=== PATIENT | female | born 2000 | race American Indian/Alaskan Native ===

== ENCOUNTER 2022-03-03 17:20 | Emergency (ER) | payer SELFPAY ==
[2022-03-03 18:27] LABS: Basophils # (Auto) 0.1 K/mm3 (0.0-0.1); Basophils % (Auto) 0.9 % (0.0-1.8); Eosinophils # (Auto) 0.2 K/mm3 (0.0-0.4); Eosinophils % (Auto) 2.6 % (0.0-4.3); Hematocrit 36.7 % (30.3-42.9); Hemoglobin 12.3 gm/dl (10.1-14.3); Lymphocytes # (Auto) 2.4 K/mm3 (1.2-5.4); Lymphocytes % (Auto) 38.7 % (13.4-35.0); Mean Corpuscular HGB Conc 33 % (30-34); Mean Corpuscular Volume 96 fl (79-97); Monocytes # (Auto) 0.6 K/mm3 (0.0-0.8); Monocytes % (Auto) 9.2 % (0.0-7.3); Platelet Count 249 K/mm3 (140-440); Red Blood Count 3.83 M/mm3 (3.65-5.03); Red Cell Distribution Width 13.3 % (13.2-15.2)
[2022-03-03 18:51] LABS: HCG Qualitative,Urine Positive (Negative)
[2022-03-03 18:58] LABS: Bilirubin,Urine NEG (Negative); Blood,Urine NEG (Negative); Color,Urine Straw (Yellow); Mucus,Urine FEW /HPF; Protein,Urine <15 mg/dL mg/dL (Negative); Urobilinogen,Urine < 2.0 mg/dL (<2.0)
--- NOTE | 2022-03-03 20:25 | Emergency Department Report ---
ED Dizziness HPI - General Chief Complaint: Dizziness Stated Complaint: DIZZY/CHECK UP Time Seen by Provider: 03/03/22 20:20 Source: patient Mode of arrival: Ambulatory Limitations: No Limitations - History of Present Illness Initial Comments: 21-year-old black female with no past medical history presents to the emergency department for evaluation of few day history of lightheadedness, dizziness, and nausea. She denies fever, abdominal pain, dysuria. MD Complaint: dizziness, lightheadedness -: Gradual, days(s) (2-3) Timing: gradual onset Description: lightheadedness History of Same: No History of Trauma: No Severity: mild Associated Symptoms: denies: ataxia, chest pain, confusion, cough, diaphoresis, fever/chills, loss of appetite, malaise, rash, seizure, shortness of breath, syncope, weakness - Related Data Previous Rx's Medication Instructions Recorded Last Taken Type Ondansetron [Zofran Odt] 4 mg PO Q8HR PRN #12 tab.rapdis 03/03/22 Unknown Rx 147/Iron/Folic Acid 1 each PO DAILY #30 tab 03/03/22 Unknown Rx [Azesco Tablet] Allergies Allergy/AdvReac Type Severity Reaction Status Date / Time No Known Allergies Allergy Verified 03/03/22 17:28 ED Review of Systems ROS: Stated complaint: DIZZY/CHECK UP Other details as noted in HPI Comment: All other systems reviewed and negative Constitutional: denies: chills, fever Eyes: denies: vision change ENT: denies: congestion Respiratory: denies: cough, shortness of breath, SOB with exertion, SOB at rest, stridor, wheezing Cardiovascular: denies: chest pain, palpitations, dyspnea on exertion, or thopnea, edema, syncope, paroxysmal nocturnal dyspnea Gastrointestinal: denies: abdominal pain, nausea, vomiting, diarrhea, hematemesis, melena, hematochezia Genitourinary: denies: urgency, dysuria, frequency, hematuria, discharge Musculoskeletal: denies: back pain Skin: denies: rash, lesions Neurological: denies: headache, weakness, numbness, paresthesias, confusion, abnormal gait, vertigo ED Past Medical Hx - Past Medical History Previous Medical History?: No - Surgical History Past Surgical History?: No - Medications Home Medications: Home Medications Medication Instructions Recorded Confirmed Last Taken Type Ondansetron [Zofran Odt] 4 mg PO Q8HR PRN #12 tab.rapdis 03/03/22 Unknown Rx 147/Iron/Folic Acid 1 each PO DAILY #30 tab 03/03/22 Unknown Rx [Azesco Tablet] ED Physical Exam - General Limitations: No Limitations General appearance: alert, in no apparent distress - Head Head exam: Present: atraumatic, normocephalic - Eye Eye exam: Present: normal appearance. Absent: conjunctival injection - Neck Neck exam: Present: normal inspection, full ROM. Absent: tenderness, meningismus, lymphadenopathy - Respiratory Respiratory exam: Present: normal lung sounds bilaterally. Absent: respiratory distress, wheezes, rales, rhonchi, stridor, chest wall tenderness - Cardiovascular Cardiovascular Exam: Present: normal heart sounds - GI/Abdominal GI/Abdominal exam: Present: soft, normal bowel sounds. Absent: distended, tenderness, guarding, rebound, rigid - Extremities Exam Extremities exam: Present: normal inspection, full ROM, normal capillary refill. Absent: tenderness, pedal edema, joint swelling, calf tenderness - Back Exam Back exam: Present: normal inspection. Absent: CVA tenderness (R), CVA tenderness (L), vertebral tenderness - Neurological Exam Neurological exam: Present: alert, oriented X3, normal gait - Psychiatric Psychiatric exam: Present: normal affect, normal mood - Skin Skin exam: Present: warm, dry, intact, normal color ED Medical Decision Making - Lab Data Result diagrams: 03/03/22 18:04 - Medical Decision Making 21-year-old black female with no past medical history presents to the emergency department for evaluation of few day history of lightheadedness, dizziness, and nausea. She denies fever, abdominal pain, dysuria. H&H within normal limit. Urine negative for UTI. Urine positive for . Patient is G3, P0. Patient denies abdominal pain and no tenderness on palpation during exam. Patient will be discharged home with Zofran and vitamin to follow-up with AGENCY SALES REPRESENTATIVE for further evaluation and management of period. She is advised to return to the emergency department for any concerns symptoms. She verbalizes understanding of and agreement with plan of care. Critical care attestation.: If time is entered above; I have spent that time in minutes in the direct care of this critically ill patient, excluding procedure time. ED Disposition Clinical Impression: Qualifiers: Weeks of gestation: less than 8 weeks Qualified Code(s): Z3A.01 - Less than 8 weeks gestation of Disposition: HOME / SELF CARE / HOMELESS Is pt being admited?: No Does the pt Need Aspirin: No Condition: Stable Instructions: First Trimester of , [id number] Additional Instructions: Medications as prescribed. You can only use Tylenol as needed for pain. No aspirin, naproxen, or ibuprofen. Drink plenty of noncaffeinated fluids. Follow-up with AGENCY SALES REPRESENTATIVE for further management and care. Return to the emergency department as needed. Prescriptions: 147/Iron/Folic Acid [Azesco Tablet] 1 each PO DAILY #30 tab Ondansetron [Zofran Odt] 4 mg PO Q8HR PRN #12 tab.rapdis PRN Reason: Nausea And Vomiting Referrals: [facility] [Provider Group] - 3-5 Days [facility] [Provider Group] - 3-5 Days Time of Disposition: 20:24
== END 2022-03-04 01:35 | disposition home or self-care (01) ==
LOC: ED 17:20
DX: O26.891 Other specified pregnancy related conditions, first trimester (principal); R42 Dizziness and giddiness; Z3A.01 Less than 8 weeks gestation of pregnancy
CPT/HCPCS: 36415; 81001; 81025; 85025; 99283

== ENCOUNTER 2022-04-30 16:31 | Emergency (ER) | payer SELFPAY ==
[2022-04-30 17:31] VITALS: BP 101/54
[2022-04-30 20:45] LABS: Bilirubin,Urine NEG (Negative); Blood,Urine NEG (Negative); Color,Urine Yellow (Yellow); Protein,Urine <15 mg/dL mg/dL (Negative); Urobilinogen,Urine < 2.0 mg/dL (<2.0)
[2022-04-30 20:47] LABS: Mucus,Urine 1+ /HPF; WBC,Urine < 1.0 /HPF (0.0-6.0)
--- NOTE | 2022-04-30 21:40 | Emergency Department Report ---
ED Female HPI - General Chief complaint: Urogenital-Female Stated complaint: ABD CRAMPING Time Seen by Provider: 04/30/22 21:12 Source: patient Mode of arrival: Ambulatory Limitations: No Limitations - History of Present Illness Initial comments: The patient was evaluated in the emergency department for symptoms described in the history of present illness. He/she was evaluated in the context of the global COVID-19 pandemic, which necessitated consideration that the patient might be at risk for infection with the virus that causes COVID-19. Inst itutional protocols and algorithms that pertain to the evaluation of patients at risk for COVID-19 are in a state of rapid change based on information released by regulatory bodies including the CDC and federal and state organizations. These policies and algorithms were followed during the patient's care in the emergency department. Please note that these policies, procedures and recommendations changed on a rapid basis. This is a pleasant and cooperative 21-year-old female, who presents to the department today with a complaint of painless vaginal spotting which is now resolved, and vaginal discharge which is now resolved. The patient had an elective termination of in February, in the state of [place]. Since then, she has been sexually active, intermittently using condoms. She denies dysuria. She is currently deciding whether or not she would like to relocate to [place], or remain in [place]. She does not have a local MEDICAL PLANNER or primary care provider MD Complaint: vaginal bleeding -: Gradual Consistency: intermittent Improves with: none Worsens with: none - Related Data Sexually active: Yes Previous Rx's Medication Instructions Recorded Last Taken Type Ondansetron [Zofran Odt] 4 mg PO Q8HR PRN #12 tab.rapdis 03/03/22 Unknown Rx 147/Iron/Folic Acid 1 each PO DAILY #30 tab 03/03/22 Unknown Rx [Azesco Tablet] Allergies Allergy/AdvReac Type Severity Reaction Status Date / Time No Known Allergies Allergy Verified 03/03/22 17:28 ED Review of Systems ROS: Stated complaint: ABD CRAMPING Other details as noted in HPI Comment: All other systems reviewed and negative Genitourinary: discharge, other (Intermittent vaginal bleeding). denies: urgency, dysuria, frequency, hematuria ED Past Medical Hx - Past Medical History Previous Medical History?: Yes Additional medical history: with - Surgical History Past Surgical History?: Yes Additional Surgical History: - Medications Home Medications: Home Medications Medication Instructions Recorded Confirmed Last Taken Type Ondansetron [Zofran Odt] 4 mg PO Q8HR PRN #12 tab.rapdis 03/03/22 Unknown Rx 147/Iron/Folic Acid 1 each PO DAILY #30 tab 03/03/22 Unknown Rx [Azesco Tablet] ED Physical Exam - General Limitations: No Limitations General appearance: alert, in no apparent distress - Head Head exam: Present: atraumatic, normocephalic - Eye Eye exam: Present: normal appearance, EOMI. Absent: nystagmus - ENT ENT exam: Present: normal exam, normal orophraynx, mucous membranes moist, normal external ear exam - Neck Neck exam: Present: normal inspection, full ROM. Absent: tenderness, meningismus - Respiratory Respiratory exam: Present: normal lung sounds bilaterally. Absent: respiratory distress, wheezes, rales, rhonchi, stridor, decreased breath sounds - Cardiovascular Cardiovascular Exam: Present: regular rate, normal rhythm, normal heart sounds. Absent: bradycardia, tachycardia, irregular rhythm, systolic murmur, diastolic murmur, rubs, gallop - GI/Abdominal GI/Abdominal exam: Present: soft. Absent: distended, tenderness, guarding, re bound, rigid, pulsatile mass - Rectal Rectal exam: Present: normal inspection - External exam: Present: normal external exam. Absent: erythema, swelling, lesions, lacerations, ecchymosis, bleeding Speculum exam: Present: normal speculum exam, other (Patient provides consent for gynecologic and pelvic examination. During the pelvic examination, I am chaperoned by juli bourgeois). Absent: erythema, vaginal discharge, cervical discharge, vaginal bleeding, foreign body, tissue, laceration - Extremities Exam Extremities exam: Present: normal inspection, full ROM, normal capillary refill. Absent: pedal edema, calf tenderness - Back Exam Back exam: Present: normal inspection. Absent: tenderness, CVA tenderness (R), CVA tenderness (L), paraspinal tenderness, vertebral tenderness - Neurological Exam Neurological exam: Present: alert, oriented X3, normal gait, other (No facial droop. Tongue midline. Extraocular movements intact bilaterally. Facial sensation intact to light touch in V1, V2, V3 distribution bilaterally. 5 and a 5 strength in 4 extremities. Sensation intact to light touch in 4 extremities.). Absent: motor sensory deficit - Psychiatric Psychiatric exam: Present: normal affect, normal mood - Skin Skin exam: Present: warm, dry, intact, normal color. Absent: rash ED Course Vital Signs 04/30/22 17:30 Temperature 98.7 F Pulse Rate 62 Respiratory 20 Rate Blood Pressure 101/54 [Right] O2 Sat by Pulse 100 Oximetry ED Medical Decision Making - Lab Data Vital Signs 04/30/22 17:30 Temperature 98.7 F Pulse Rate 62 Respiratory 20 Rate Blood Pressure 101/54 [Right] O2 Sat by Pulse 100 Oximetry Lab Results 04/30/22 04/30/22 Range/Units 22:07 Unknown Urine Color Yellow (Yellow) Urine Turbidity Clear (Clear) Urine pH 7.0 (5.0-7.0) Ur Specific [place] 1.023 (1.003-1.030) Urine Protein <15 mg/dl (Negative) mg/dL Urine Glucose (UA) Neg (Negative) mg/dL Urine Ketones Neg (Negative) mg/dL Urine Blood Neg (Negative) Urine Nitrite Neg (Negative) Urine Bilirubin Neg (Negative) Urine Urobilinogen < 2.0 (<2.0) mg/dL Ur Leukocyte Esterase Neg (Negative) Urine WBC (Auto) < 1.0 (0.0-6.0) /HPF Urine RBC (Auto) 1.0 (0.0-6.0) /HPF U Epithel Cells (Auto) 7.0 (0-13.0) /HPF Urine Mucus 1+ /HPF Urine HCG, Qual Negative (Negative) - Medical Decision Making Differential diagnosis, including but not limited to: Encounter for test, menstruation Assessment and plan: 21-year-old female, who is afebrile, with reassuring vital signs, who presents with history of vaginal spotting after elective termination of in mid February, now resolved, with gynecologic discharge which is not present. Physical examination is benign and unremarkable. No obvious discharge noted on pelvic exam. Urinalysis nonactionable. She is not . She can follow-up with an outpatient oil burner journeyman. She does not appear to have an emergent medical condition present at this time. Patient advised to practice safe sex practices as she is not using condoms during sexual encounters. Return precautions are reviewed. All questions are answered Critical care attestation.: If time is entered above; I have spent that time in minutes in the direct care of this critically ill patient, excluding procedure time. ED Disposition Clinical Impression: Negative test, High risk sexual behavior Disposition: 01 HOME / SELF CARE / HOMELESS Is pt being admited?: No Does the pt Need Aspirin: No Condition: Good Instructions: Safe Sex Additional Instructions: Recommend that patient practice safe sex practices, and have partners wear barrier protection during sexual activity. Patient is found to not be today by urine screening test. Patient does not appear to have an emergent medical condition present today. We recommend the patient follow-up with a oil burner journeyman within the next month. Please return to the emergency room right away with new pain, worsened pain, migration of pain, projectile vomiting, change in mental status, confusion, inability tolerate liquid feeds, new, worsened or different symptoms not present on the initial emergency room evaluation Referrals: [facility] [Provider Group] - 3-5 Days [facility] [Provider Group] - 3-5 Days [facility] [Provider Group] - 3-5 Days Forms: Work/School Release Form(ED)
[2022-04-30 22:19] LABS: HCG Qualitative,Urine Negative (Negative)
== END 2022-04-30 23:00 | disposition home or self-care (01) ==
LOC: ED 16:31
DX: Z32.02 Encounter for pregnancy test, result negative (principal); R46.89 Other symptoms and signs involving appearance and behavior
CPT/HCPCS: 81001; 81025; 99283